=== PATIENT | female | born 1980 | race Caucasian/White ===

== ENCOUNTER 2017-11-12 01:12 | Emergency (ER) | payer OTHER ==
[~2017-11-12] VITALS: Ht 172.7 cm; Wt 63.7 kg
[2017-11-12 01:17] VITALS: Ht 172.7 cm; Wt 63.7 kg
[2017-11-12 03:15] VITALS: BP 107/74
== END 2017-11-12 03:15 | disposition home or self-care (01) ==
LOC: ED 01:12
DX: S93.402A Sprain of unspecified ligament of left ankle, initial encounter (principal); W10.8XXA Fall (on) (from) other stairs and steps, initial encounter; Y93.89 Activity, other specified; Y92.89 Other specified places as the place of occurrence of the external cause; Y99.8 Other external cause status
CPT/HCPCS: J1885

== ENCOUNTER 2018-12-10 16:56 | Emergency (ER) | payer OTHER ==
[~2018-12-10] VITALS: Ht 172.7 cm; Wt 63.5 kg
[2018-12-10 17:18] VITALS: Ht 172.7 cm; Wt 63.5 kg
[2018-12-10 19:02] LABS: BASOPHIL % 0.7 % (0-2); PLATELET COUNT 180 x10^3mcL (130-400)
[2018-12-10 19:06] LABS: RED CELL DISTRIBUTION WIDTH 16.8 % (11.5-14.5)
[2018-12-10 19:29] VITALS: BP 113/84
[2018-12-10 19:31] LABS: microscopic required? NO
[2018-12-10 20:14] LABS: UA SPECIFIC GRAVITY >=1.030 (1.005-1.035); urine erythrocyte NEGATIVE (NEGATIVE)
== END 2018-12-10 20:11 | disposition home or self-care (01) ==
LOC: ED 16:56
PROVIDERS: Emergency Medicine
DX: R10.2 Pelvic and perineal pain (principal); N83.209 Unspecified ovarian cyst, unspecified side
CPT/HCPCS: 36415

== ENCOUNTER 2019-06-19 18:41 | Emergency (ER) | payer OTHER ==
[~2019-06-19] VITALS: Ht 170.2 cm; Wt 68.0 kg
[2019-06-19 19:05] VITALS: Ht 170.2 cm; Wt 68.0 kg
[2019-06-19 21:54] VITALS: BP 116/67
== END 2019-06-19 21:54 | disposition home or self-care (01) ==
LOC: ED 18:41
DX: M43.6 Torticollis (principal); Z90.49 Acquired absence of other specified parts of digestive tract; Z98.890 Other specified postprocedural states
CPT/HCPCS: 20552; J2001; J3301; J3490

== ENCOUNTER 2020-09-11 19:50 | Emergency (ER) | payer MEDICAID ==
[~2020-09-11] VITALS: Ht 172.7 cm; Wt 64.9 kg
[2020-09-11 20:24] VITALS: Ht 172.7 cm; Wt 64.9 kg
[2020-09-11 21:50] VITALS: BP 122/73
== END 2020-09-11 21:50 | disposition home or self-care (01) ==
LOC: ED 19:50
DX: S92.901A Unspecified fracture of right foot, initial encounter for closed fracture (principal); Z90.49 Acquired absence of other specified parts of digestive tract; W01.0XXA Fall on same level from slipping, tripping and stumbling without subsequent striking against object, initial encounter; Y93.89 Activity, other specified; Y92.89 Other specified places as the place of occurrence of the external cause; Y99.8 Other external cause status
CPT/HCPCS: Q0162